=== PATIENT | male | born 1985 | race Caucasian/White ===

== ENCOUNTER 2017-10-17 22:46 | Emergency (ER) | payer OTHER ==
[~2017-10-17] VITALS: Ht 180.3 cm; Wt 96.9 kg
[2017-10-17 23:10] LABS: HEMATOCRIT 45.8 % (38.0-50.0); HEMOGLOBIN 16.7 G/DL (12.5-16.6); MCHC 36.5 G/DL (30.0-36.0); MCV 90.5 FL (86-99); PLATELET COUNT 128 K/uL (156-360); RBC DIS.WIDTH-SD 38.9 % (39-53); RED BLOOD COUNT 5.06 M/uL (4.00-5.50); WHITE BLOOD COUNT 5.9 K/uL (4.1-10.2)
[2017-10-17 23:22] LABS: CHLORIDE 101 mEq/L (99-109); POTASSIUM 4.4 mEq/L (3.7-5.4); SODIUM 136 mEq/L (136-147)
[2017-10-17 23:23] LABS: GLUCOSE 110 mg/dL (70-99)
[2017-10-17 23:27] LABS: CREATININE 1.4 mg/dL (0.6-1.3)
[2017-10-17 23:28] LABS: GFR ESTIMATE (CALCULATED) > 59 mL/min/ (58.99-99999); UREA NITROGEN (BUN) 13 mg/dL (9-23)
[2017-10-18 04:17] VITALS: BP 110/67
== END 2017-10-18 04:18 | disposition home or self-care (01) ==
LOC: EME 22:46
DX: A08.4 Viral intestinal infection, unspecified (principal); S00.03XA Contusion of scalp, initial encounter; W19.XXXA Unspecified fall, initial encounter
CPT/HCPCS: 70450; 80048; 81003; 85027; 99281; 99284; J7030